=== PATIENT | female | born 1960 | race African-American/Black ===

== ENCOUNTER 2017-01-26 16:52 | Emergency (ER) | payer MEDICARE ==
[2017-01-26] MEDS ORDERED: METHYLPREDNISOLONE INJ 125 MG/2 ML SDV IV ONE (17:08)
[2017-01-26] MEDS ORDERED: DIPHENHYDRAMINE HCL 50 MG/ML VIAL IV ONE (17:08)
[2017-01-26] MEDS ORDERED: FAMOTIDINE INJ/PF 20 MG/2 ML SDV IV ONE (17:08)
[2017-01-26] MEDS ORDERED: NORMAL SALINE 1000 ML 1,000 ML IV PRN (17:08)
--- NOTE | 2017-01-26 17:10 | ER Document Report ---
ED Medical Screen (RME) - General Chief Complaint: Allergic Reaction Stated Complaint: POSSIBLE ALLERGIC REATION Time Seen by Provider: 01/26/17 16:59 Mode of Arrival: Wheelchair Information source: Patient TRAVEL OUTSIDE OF THE [place] IN LAST 30 DAYS: No - HPI Patient complains to provider of: Allergic reaction, facial swelling, rash Notes: 01/26/17 17:09 Patient is a 56-year-old female presenting to the emergency room complaining of allergic reaction with facial swelling and rash, symptoms have been going on for the past few months, intermittently, yesterday she had worsening symptoms and used her EpiPen which seemed to improve her symptoms, however they are worsening again today, she had a recent biopsy of the rash on her hands and follows up with her top steep tender tomorrow, otherwise at home she has been taking 60 mg of prednisone daily up until yesterday, Claritin and hydralazine - Related Data Allergies/Adverse Reactions: topiramate [From Topamax] Allergy (Verified 01/26/17 16:58) Past Medical History - Past Medical History Cardiac Medical History: Reports: Hx Heart Attack, Hx Hypercholesterolemia, Hx Hypertension, Hx Pulmonary Embolism Endocrine Medical History: Reports: Hx Diabetes Mellitus Type 2 - BORDERLINE Renal/ Medical History: Denies: Hx Peritoneal Dialysis GI Medical History: Reports: Hx Irritable Bowel Musculoskeltal Medical History: Reports Hx Arthritis, Reports Hx Fibromyalgia Psychiatric Medical History: Reports: Hx Anxiety, Hx Depression Past Surgical History: Reports: Hx Section, Hx Hysterectomy - Immunizations Hx Diphtheria, Pertussis, Tetanus Vaccination: Yes
[2017-01-26] MEDS ORDERED: KETOROLAC TROMETHAMINE INJ/PF 30 MG/1 ML SDV IV ONE (20:07)
[2017-01-26] MEDS ORDERED: DIAZEPAM INJ 10 MG/2 ML DISP.SYRIN IV ONE (20:07)
--- NOTE | 2017-01-26 20:13 | ER Document Report ---
ED General - General Chief Complaint: Allergic Reaction Stated Complaint: POSSIBLE ALLERGIC REATION Time Seen by Provider: 01/26/17 16:59 Mode of Arrival: Wheelchair Notes: Patient is a 56-year-old female with a past medical history of chronic pain, fibromyalgia, obesity, hypertension, and psoriatic arthritis currently on Humira who presents with concerns of difficulty breathing and a possible acute allergic reaction. Although these are apparently patient's initial concerns, when I begin speaking with patient she is more concerned regarding some skin lesions on her bilateral lower and upper extremities as well as her back and abdomen that has been present for approximately 2-3 weeks. She is currently being followed by dermatology for this concern. She does describe these areas as being severely itchy, burning, and constantly uncomfortable. She has tried steroids and hydroxyzine without any significant improvement of her pain and irritation. Touching the areas worsens her symptoms. She denies any fever or constitutional symptoms. States that it did start after she missed a dose of Humira. States today she began to feel itching all over and felt she was also beginning to have difficulty breathing which is what prompted her come to the emergency department. The symptoms have now mostly resolved after receiving IV Benadryl in triage. She currently denies any difficulty breathing, vomiting, diarrhea, abdominal pain, syncope or lightheadedness. TRAVEL OUTSIDE OF THE [place] IN LAST 30 DAYS: No - Related Data Allergies/Adverse Reactions: topiramate [From Topamax] Allergy (Verified 01/26/17 16:58) Past Medical History - General Information source: Patient - Social History Smoking Status: Never Smoker Frequency of alcohol use: None Drug Abuse: None Lives with: Spouse/Significant other Family History: Reviewed & Not Pertinent, CVA, Hypertension - Past Medical History Cardiac Medical History: Reports: Hx Heart Attack, Hx Hypercholesterolemia, Hx Hypertension, Hx Pulmonary Embolism Endocrine Medical History: Reports: Hx Diabetes Mellitus Type 2 - BORDERLINE Renal/ Medical History: Denies: Hx Peritoneal Dialysis GI Medical History: Reports: Hx Irritable Bowel Musculoskeltal Medical History: Reports Hx Arthritis, Reports Hx Fibromyalgia Psychiatric Medical History: Reports: Hx Anxiety, Hx Depression Past Surgical History: Reports: Hx Section, Hx Hysterectomy - Immunizations Hx Diphtheria, Pertussis, Tetanus Vaccination: Yes Review of Systems - Review of Systems Notes: Constitutional: Negative for fever. HENT: Negative for sore throat. Eyes: Negative for visual changes. Cardiovascular: Negative for chest pain. Respiratory: Negative for shortness of breath. Gastrointestinal: Negative for abdominal pain, vomiting or diarrhea. Genitourinary: Negative for dysuria. Musculoskeletal: Negative for back pain. Skin: Positive for rash. Neurological: Negative for headaches, weakness or numbness. 10 point ROS negative except as marked above and in HPI. Physical Exam - Vital signs Vitals: Resp Pulse Ox 11 L 100 01/26/17 19:39 01/26/17 19:39 Interpretation: Normal Notes: PHYSICAL EXAMINATION: GENERAL: Well-appearing, well-nourished and in no acute distress. HEAD: Atraumatic, normocephalic. EYES: Pupils equal round and reactive to light, extraocular movements intact, sclera anicteric, conjunctiva are normal. ENT: nares patent, oropharynx clear without exudates. Moist mucous membranes. No oral lesions NECK: Normal range of motion, supple without lymphadenopathy LUNGS: Breath sounds clear to auscultation bilaterally and equal. No wheezes rales or rhonchi. HEART: Regular rate and rhythm without murmurs ABDOMEN: Soft, nontender, normoactive bowel sounds. No guarding, no rebound. No masses appreciated. EXTREMITIES: Normal range of motion, no pitting or edema. No cyanosis. NEUROLOGICAL: No focal neurological deficits. Moves all extremities spontaneously and on command. PSYCH: Anxious, tearful SKIN: Warm, Dry, normal turgor, scattered areas of raised plaques over the bilateral hands, feet, back and abdomen Course - Re-evaluation Re-evalutation: 01/26/17 20:08 Patient presents with several weeks of diffuse lesions over her body that appear most consistent with an autoimmune condition. Raised, erythematous plaques over the back, bilateral feet and hands. She has already had a biopsy of these areas done and will be following up with her lacer and tier tomorrow. She does not appear to be having an acute allergic reaction today. No respiratory involvement, vitals within normal limits, no GI system involvement. Cardiovascular system without any evidence of syncope or hypotension. I do not see any indication for administration of epinephrine or repeat dosing of steroids. She has already come off a seven-day course of steroids without any significant improvement of her rash. I suspect the patient will require long- term immunosuppression therapy and do not believe there is anything additional acute that can be offered here in the emergency department and have discussed this at length with the patient. At this time will discharge with return precautions and follow-up recommendations. Verbal discharge instructions given a the bedside and opportunity for questions given. Medication warnings reviewed. Patient is in agreement with this plan and has verbalized understanding of return precautions and the need for primary care follow-up in the next 24-72 hours. - Vital Signs Vital signs: Temp Pulse Resp BP Pulse Ox 16 158/101 H 95 01/26/17 21:01 01/26/17 21:01 01/26/17 21:01 Discharge - Discharge Clinical Impression: Autoimmune dermatitis Condition: Good Disposition: HOME, SELF-CARE Additional Instructions: Please follow-up with your lacer and tier as scheduled. You have been sent home with a small amount of diazepam which you can use for anxiety in the setting of your ongoing medical issues. Return if you develop difficulty breathing, persistent vomiting, pass out, or have any other symptoms that are worrisome to you. Prescriptions: Diazepam [Valium 5 mg Tablet] 5 mg PO DAILY PRN #5 tablet PRN Reason:
[2017-01-26 21:06] VITALS: BP 158/101
== END 2017-01-26 21:22 | disposition home or self-care (01) ==
LOC: ER 16:52
DX: L40.50 Arthropathic psoriasis, unspecified (principal); T39.4X6A Underdosing of antirheumatics, not elsewhere classified, initial encounter; Z91.14 Patient's other noncompliance with medication regimen; I10 Essential (primary) hypertension; R06.00 Dyspnea, unspecified; I25.2 Old myocardial infarction; Z88.6 Allergy status to analgesic agent; Z79.899 Other long term (current) drug therapy
CPT/HCPCS: 99283; 96361; 96374; 96375; J3360; J1200; J2930; J1885; J7030; S0028

== ENCOUNTER 2017-06-27 19:20 | Inpatient (IN) | payer MEDICARE ==
[2017-06-27] MEDS ORDERED: ALBUTEROL SULFATE 0.083% NEB 2.5 MG/3 ML AMPUL NEB ONE ×2 (20:58→23:14)
--- NOTE | 2017-06-27 20:59 | ER Document Report ---
ED Flu Like - General Chief Complaint: Flu Symptoms Stated Complaint: FEVER,COUGH, CONGESTION Time Seen by Provider: 06/27/17 20:18 Notes: Patient is a 57-year-old female who presents emergency department with a chief complaint of nonproductive cough, wheezing, shortness of breath, sinus congestion, headach, fever with a T-max of 101 for the past 3 days. She denies any productive cough, chest pain. She admits to tightness in her chest that is worse with coughing. She admits to sore throat as well. She denies any sick contacts. Past medical history significant for psoriasis on Stelara and methotrexate, previous history of PEs but stopped taking her blood thinners, degenerative disc disease, osteoporosis psoriatic arthritis on chronic pain management with Dr. Pierre. She takes 30 mg oxycodone as well as morphine extended release. History of fibromyalgia. Prediabetic not on any medication, hypertension on amlodipine, high cholesterol Past surgical history significant for 1, previous hysterectomy, coronary cath 1 Social history is a half a pack a day smoker for the past 40 years admits to occasional alcohol. Denies any drug use. TRAVEL OUTSIDE OF THE [place] IN LAST 30 DAYS: No - Related Data Allergies/Adverse Reactions: topiramate [From Topamax] Allergy (Verified 01/26/17 16:58) Past Medical History - Social History Smoking Status: Unknown if Ever Smoked Family History: Reviewed & Not Pertinent, CVA, Hypertension Patient has suicidal ideation: No Patient has homicidal ideation: No - Past Medical History Cardiac Medical History: Reports: Hx Heart Attack, Hx Hypercholesterolemia, Hx Hypertension, Hx Pulmonary Embolism Endocrine Medical History: Reports: Hx Diabetes Mellitus Type 2 - BORDERLINE Renal/ Medical History: Denies: Hx Peritoneal Dialysis GI Medical History: Reports: Hx Irritable Bowel Musculoskeltal Medical History: Reports Hx Arthritis, Reports Hx Fibromyalgia Psychiatric Medical History: Reports: Hx Anxiety, Hx Depression Past Surgical History: Reports: Hx Section, Hx Hysterectomy - Immunizations Hx Diphtheria, Pertussis, Tetanus Vaccination: Yes Physical Exam - Vital signs Vitals: Temp Pulse BP Pulse Ox 99.2 F 114 H 151/94 H 94 06/27/17 19:30 06/27/17 19:30 06/27/17 19:30 06/27/17 19:30 - Notes Notes: PHYSICAL EXAM GENERAL: Alert, interacts well. HEAD: Normocephalic, atraumatic. EYES: Pupils equal, round, and reactive to light. Extraocular movements intact. ENT: Oral mucosa moist, tongue midline. NECK: Full range of motion. Supple. Trachea midline. LUNGS: Diffuse inspiratory respiratory wheezes noted bilaterally without rales, or rhonchi. No respiratory distress Tachypnea on exertion HEART: Regular rate and rhythm. No murmurs, gallops, or rubs. ABDOMEN: Soft, nondistended, nontender. No guarding, rebound, or rigidity.. Bowel sounds present in all 4 quadrants. EXTREMITIES: Moves all 4 extremities spontaneously. No edema, radial and dorsalis pedis pulses 2/4 bilaterally. No cyanosis. NEUROLOGICAL: Alert and oriented x4. Normal speech. PSYCH: Normal affect, normal mood. SKIN: Warm, dry, normal turgor. No rashes or lesions noted. Course - Re-evaluation Re-evalutation: 06/27/17 22:21 Patient is a 57-year-old female who is hemodynamically stable, no acute distress afebrile. Presentation is consistent with viral bronchitis. Chest x- ray without any evidence of vascular congestion, acute infiltrate, enlarged cardiac border. Rapid strep is negative. Patient with minimal improvement after multiple breathing treatments. EKG without any evidence of right heart strain, arrhythmia, ST elevations 06/27/17 23:14 IV access obtained and Solu-Medrol administered labs sent without any evidence of leukocytosis, anemia. Chemistry panel stable without any evidence of electrolyte abnormalities, elevated troponin. 06/28/17 00:40 Patient ambulated after last breathing treatment and desats down to 88-90% with tachypnea and tachycardia into the 130s. She resolves to approximately 94% on room air with rest with a heart rate of 115. Case discussed with the admitting hospitalist Dr. Slater who agrees for telemetry observation for viral bronchitis with associated hypoxia. Patient and family are agreeable with plan - Vital Signs Vital signs: Temp Pulse Resp BP Pulse Ox 100.8 F H 109 H 18 116/63 94 06/28/17 00:17 06/27/17 22:31 06/27/17 22:31 06/27/17 22:31 06/27/17 22:31 - Laboratory Result Diagrams: 06/27/17 23:35 06/27/17 23:35 Laboratory results interpreted by me: 06/27/17 06/27/17 23:35 23:35 RDW 14.5 H Seg Neutrophils % 29.6 L Lymphocytes % 55.7 H Absolute Neutrophils 1.4 L Sodium 136.1 L Chloride 97 L Glucose 252 H Total Bilirubin < 0.1 L - Diagnostic Test Radiology reviewed: Image reviewed, Reports reviewed - EKG Interpretation by Me EKG shows normal: Sinus rhythm Rate: Tachycardia Rhythm: NSR When compared to previous EKG there are: No significant change Discharge - Discharge Clinical Impression: Bronchitis, Hypoxia Condition: Stable Disposition: ADMITTED OBSERVATION Admitting Provider: Hospitalist Unit Admitted: Telemetry
--- NOTE | 2017-06-27 21:25 | RADIOLOGY REPORT (SQ) ---
EXAM DESCRIPTION: CHEST PA/LAT COMPLETED DATE/TIME: 06/27/2017 9:16 pm REASON FOR STUDY: cough COMPARISON: 01/15/2016 EXAM PARAMETERS: NUMBER OF VIEWS: two views TECHNIQUE: Digital Frontal and Lateral radiographic views of the chest acquired. RADIATION DOSE: NA LIMITATIONS: none FINDINGS: LUNGS AND PLEURA: No opacities, masses or pneumothorax. No pleural effusion. MEDIASTINUM AND HILAR STRUCTURES: No masses or contour abnormalities. HEART AND VASCULAR STRUCTURES: Heart normal size. No evidence for failure. BONES: No acute findings. HARDWARE: None in the chest. OTHER: No other significant finding. IMPRESSION: NO SIGNIFICANT RADIOGRAPHIC FINDING IN THE CHEST. TECHNICAL DOCUMENTATION: JOB ID: [id number] [employer]- All Rights Reserved Reading location - IP/workstation name: [email or web address]
--- NOTE | 2017-06-27 21:49 | EKG REPORT ---
SEVERITY:- BORDERLINE ECG - SINUS TACHYCARDIA PROBABLE LEFT ATRIAL ABNORMALITY MINIMAL ST DEPRESSION, INFERIOR LEADS : Confirmed by: Mehran Douglas 27-Jun-2017 21:48:37
[2017-06-27] MEDS ORDERED: GUAIFENESIN 600 MG TABLET.SA PO ONE (22:21)
[2017-06-27] MEDS ORDERED: IPRATROPIUM/ALBUTEROL 0.5-2.5 MG/3 ML AMPUL NEB ONE (22:21)
[2017-06-27] MEDS ORDERED: METHYLPREDNISOLONE INJ 125 MG/2 ML SDV IV ONE (23:15)
[2017-06-27 23:45] LABS: ABSOLUTE EOSINOPHILS # (AUTO) 0.1 10^3/uL (0.0-0.6); ABSOLUTE LYMPHOCYTES (AUTO) 2.7 10^3/uL (0.5-4.7); ABSOLUTE MONOCYTES (AUTO) 0.6 10^3/uL (0.1-1.4); ABSOLUTE NEUT (AUTO) 1.4 10^3/uL (1.7-8.2); BASOPHILS % (AUTO) 0.7 % (0-2); EOSINOPHILS % (AUTO) 1.6 % (0-6); HEMATOCRIT 41.8 % (36.0-47.0); HEMOGLOBIN 13.9 g/dL (12.0-15.5); LYMPHOCYTES % (AUTO) 55.7 % (13-45); MEAN CORPUSCULAR HEMOGLOBIN 31.3 pg (27.0-33.4); MEAN CORPUSCULAR HGB CONC 33.2 g/dL (32.0-36.0); MEAN CORPUSCULAR VOLUME 94 fl (80-97); MONOCYTES % (AUTO) 12.4 % (3-13); PLATELET COUNT 261 10^3/uL (150-450); RED BLOOD COUNT 4.44 10^6/uL (3.72-5.28); RED CELL DISTRIBUTION WIDTH 14.5 % (11.5-14.0); SEGMENTED NEUTROPHILS % (AUTO) 29.6 % (42-78); TOTAL CELLS COUNTED % (AUTO) 100 %; WHITE BLOOD COUNT 4.8 10^3/uL (4.0-10.5)
[2017-06-28 00:01] LABS: ALANINE AMINOTRANSFERASE 33 U/L (9-52); ALBUMIN 4.1 g/dL (3.5-5.0); ALKALINE PHOSPHATASE 79 U/L (38-126); ANION GAP 12 (5-19); ASPARTATE AMINO TRANSFERASE 24 U/L (14-36); BLOOD UREA NITROGEN 11 mg/dL (7-20); CALCIUM 9.4 mg/dL (8.4-10.2); CARBON DIOXIDE 27 mmol/L (22-30); CHLORIDE 97 mmol/L (98-107); GLUCOSE 252 mg/dL (75-110); POTASSIUM 4.2 mmol/L (3.6-5.0); SODIUM 136.1 mmol/L (137-145)
[2017-06-28 00:03] LABS: BILIRUBIN,TOTAL < 0.1 mg/dL (0.2-1.3)
[2017-06-28] MEDS ORDERED: ACETAMINOPHEN 325 MG TABLET PO ONE (00:16)
[2017-06-28] MEDS ORDERED: LACTULOSE SYRUP 20 GM/30 ML UDCUP PO ONE (00:33)
[2017-06-28] MEDS ORDERED: HYDRALAZINE HCL INJ/PF 20 MG/1 ML SDV IV PRN (00:33)
[2017-06-28] MEDS ORDERED: CHLORPHENIRAMINE MALEATE 4 MG TABLET PO ONE (00:33)
[2017-06-28] MEDS ORDERED: DEXTROSE 40% GEL 15 GM TUBE PO PRN ×2 (00:34)
[2017-06-28] MEDS ORDERED: IPRATROPIUM/ALBUTEROL 0.5-2.5 MG/3 ML AMPUL NEB PRN (00:34)
[2017-06-28] MEDS ORDERED: GUAIFENESIN SYRP 200 MG/10 ML UDC PO PRN (00:34)
[2017-06-28] MEDS ORDERED: DEXTROSE 50%-WATER 25 GM/50 ML DISP.SYRIN IV PRN ×2 (00:34)
[2017-06-28] MEDS ORDERED: GLUCAGON,HUMAN RECOMB 1 MG INJ IM PRN (00:34)
[2017-06-28] MEDS ORDERED: LEVOFLOXACIN 750 MG/D5W RTU 750 MG/150 ML RTUPB IV ONE ×2 (01:00→05:00)
[2017-06-28] MEDS ORDERED: FLUTICASONE NASAL SPRAY 50 MCG/SPRY 120 SPRAY/16 GM NASL ONE (01:00)
[2017-06-28] MEDS: IPRATROPIUM/ALBUTEROL 0.5-2.5 MG/3 ML AMPUL NEB SCH ×3 (02:36→14:40)
[2017-06-28] MEDS ORDERED: (PENDING PHARMACY ID) (Oxycodone Hcl [Oxycodone Hcl] 5 MG) PO PRN (03:54)
[2017-06-28 04:11] LABS: ABSOLUTE LYMPHOCYTES (AUTO) 0.3 10^3/uL (0.5-4.7); ABSOLUTE MONOCYTES (AUTO) 0.1 10^3/uL (0.1-1.4); ABSOLUTE NEUT (AUTO) 3.9 10^3/uL (1.7-8.2); EOSINOPHILS % (AUTO) 0.4 % (0-6); HEMATOCRIT 42.7 % (36.0-47.0); HEMOGLOBIN 14.3 g/dL (12.0-15.5); LYMPHOCYTES % (AUTO) 7.3 % (13-45); MEAN CORPUSCULAR HEMOGLOBIN 31.5 pg (27.0-33.4); MEAN CORPUSCULAR HGB CONC 33.4 g/dL (32.0-36.0); MEAN CORPUSCULAR VOLUME 94 fl (80-97); MONOCYTES % (AUTO) 1.8 % (3-13); PLATELET COUNT 274 10^3/uL (150-450); RED BLOOD COUNT 4.54 10^6/uL (3.72-5.28); RED CELL DISTRIBUTION WIDTH 14.6 % (11.5-14.0); SEGMENTED NEUTROPHILS % (AUTO) 89.5 % (42-78); TOTAL CELLS COUNTED % (AUTO) 100 %; WHITE BLOOD COUNT 4.4 10^3/uL (4.0-10.5)
[2017-06-28 04:25] LABS: ANION GAP 13 (5-19); BLOOD UREA NITROGEN 11 mg/dL (7-20); CALCIUM 9.2 mg/dL (8.4-10.2); CARBON DIOXIDE 24 mmol/L (22-30); CHLORIDE 102 mmol/L (98-107); GLUCOSE 260 mg/dL (75-110); POTASSIUM 4.4 mmol/L (3.6-5.0); SODIUM 138.8 mmol/L (137-145)
--- NOTE | 2017-06-28 04:30 | PDOC H&P ---
History of Present Illness Admission Date/PCP: 06/28/17 00:46 Patient complains of: Shortness of breath nonproductive cough History of Present Illness: LADONNA ARRIETA is a 57 year old female with a past medical history of opiate dependent chronic pain, fibromyalgia, Morbid obesity, tobacco dependence and psoriasis on methotrexate and Stelara (last dose 1 month ago). Patient presents with 3 days ago of nonproductive cough, headache, shortness of breath with wheeze, sinus congestion and subjective fever. In the emergency room she is found to have an unremarkable workup with exception to wheeze. She started on albuterol and Atrovent and referred to the hospitalist for admission. She denies recent antibiotic use. Past Medical History Cardiac Medical History: Reports: Myocardial Infarction, Hyperlipidema, Hypertension, Pulmonary Embolism Endocrine Medical History: Reports: Diabetes Mellitus Type 2 - BORDERLINE Musculoskeltal Medical History: Reports: Arthritis, Fibromyalgia Psychiatric Medical History: Reports: Depression Past Surgical History Past Surgical History: Reports: Section, Hysterectomy Social History Information Source: Patient Smoking Status: Current Every Day Smoker Frequency of Alcohol Use: Social Hx Recreational Drug Use: No Drugs: None - Advance Directive Resuscitation Status: Full Code Family History Family History: CVA, Hypertension Parental Family History Reviewed: Yes Children Family History Reviewed: Yes Sibling(s) Family History Reviewed.: Yes Medication/Allergy Home Medications: Buspirone HCl [Buspar 15 mg Tablet] 15 mg PO TID 05/01/12 Cyclobenzaprine HCl [Flexeril 10 Mg Tablet] 10 mg PO TID 05/01/12 Diazepam [Valium] 10 mg PO BID 05/01/12 Diclofenac Sodium [Voltaren] 75 mg PO BID 05/01/12 Fenofibric Acid (Choline) [Trilipix] 135 mg PO DAILY 05/01/12 Gabapentin [Neurontin 400 Mg Capsule] 400 mg PO TID 05/01/12 Hydroxyzine Pamoate [Vistaril 50 Mg Capsule] 50 mg PO Q6 05/01/12 Lisinopril/Hydrochlorothiazide [Zestoretic 10-12.5 mg Tablet] BID 05/01/12 Omeprazole [Prilosec 20 mg Capsule] 20 mg PO DAILY 05/01/12 Oxycodone HCl 15 mg PO Q6 PRN 05/01/12 Rosuvastatin Calcium [Crestor 40 mg Tablet] 40 mg PO DAILY 05/01/12 Sertraline HCl [Zoloft] 150 mg PO DAILY 05/01/12 Trazodone HCl [Desyrel] 200 mg PO DAILY 05/01/12 Warfarin Sodium [Coumadin 5 Mg Tablet] 5 mg PO DAILY 05/01/12 Docusate Sodium [Colace 100 mg Capsule] 100 mg PO DAILY #30 capsule 08/16/15 Magnesium Citrate [Citrate of Magnesia 296 ml Bottle] 296 ml PO ONCE PRN #1 bottle 08/16/15 Nystatin/Dexameth/Diphen [Magic Mouthwash (Omh Formula) Susp] 5 ml PO QID #120 ml 08/16/15 Diazepam [Valium 5 mg Tablet] 5 mg PO DAILY PRN #5 tablet 01/26/17 Allergies/Adverse Reactions: topiramate [From Topamax] Allergy (Verified 01/26/17 16:58) Review of Systems ROS unobtainable: Other - Review of systems is felt unreliable as patient answers affirmatively all questions. Constitutional: ABSENT: chills, fever(s), headache(s), weight gain, weight loss Eyes: ABSENT: visual disturbances Ears: ABSENT: hearing changes Cardiovascular: ABSENT: chest pain, dyspnea on exertion, edema, orthropnea, palpitations Respiratory: ABSENT: cough, hemoptysis Gastrointestinal: ABSENT: abdominal pain, constipation, diarrhea, hematemesis, hematochezia, nausea, vomiting Genitourinary: ABSENT: dysuria, hematuria Musculoskeletal: ABSENT: joint swelling Integumentary: ABSENT: rash, wounds Neurological: ABSENT: abnormal gait, abnormal speech, confusion, dizziness, focal weakness, syncope Psychiatric: ABSENT: anxiety, depression, homidical ideation, suicidal ideation Endocrine: ABSENT: cold intolerance, heat intolerance, polydipsia, polyuria Hematologic/Lymphatic: ABSENT: easy bleeding, easy bruising Physical Exam Vital Signs: Temp Pulse Resp BP Pulse Ox 97.8 F 111 H 18 137/118 H 94 06/28/17 03:50 06/28/17 02:33 06/28/17 04:01 06/28/17 04:01 06/28/17 04:01 General appearance: PRESENT: no acute distress, cooperative, morbidly obese Head exam: PRESENT: atraumatic, normocephalic Eye exam: PRESENT: conjunctiva pink, EOMI, PERRLA. ABSENT: scleral icterus Ear exam: PRESENT: normal external ear exam Mouth exam: PRESENT: moist, tongue midline Neck exam: ABSENT: carotid bruit, JVD, lymphadenopathy, thyromegaly Respiratory exam: PRESENT: clear to auscultation shashank, prolonged expiratory phas , rhonchi - Upper airway rhonchi, other - Poor effort. ABSENT: rales, wheezes Cardiovascular exam: PRESENT: RRR. ABSENT: diastolic murmur, rubs, systolic murmur Pulses: PRESENT: normal dorsalis pedis pul Vascular exam: PRESENT: normal capillary refill GI/Abdominal exam: PRESENT: normal bowel sounds, soft. ABSENT: distended, guarding, mass, organolmegaly, rebound, tenderness Rectal exam: PRESENT: deferred Extremities exam: PRESENT: full ROM. ABSENT: calf tenderness, clubbing, pedal edema Neurological exam: PRESENT: alert, awake, oriented to person, oriented to place , oriented to time, oriented to situation, CN II-XII grossly intact. ABSENT: motor sensory deficit Psychiatric exam: PRESENT: flat affect, normal mood. ABSENT: homicidal ideation , suicidal ideation Skin exam: PRESENT: dry, intact, warm. ABSENT: cyanosis, rash Results Laboratory Results: 06/28/17 04:00 06/28/17 04:00 WBC 4.4 RBC 4.54 Hgb 14.3 Hct 42.7 MCV 94 MCH 31.5 MCHC 33.4 RDW 14.6 H Plt Count 274 Seg Neutrophils % 89.5 H Lymphocytes % 7.3 L Monocytes % 1.8 L Eosinophils % 0.4 Basophils % 1.0 Absolute Neutrophils 3.9 Absolute Lymphocytes 0.3 L Absolute Monocytes 0.1 Absolute Eosinophils 0.0 Absolute Basophils 0.0 Impressions: Chest X-Ray 06/27/17 20:58 IMPRESSION: NO SIGNIFICANT RADIOGRAPHIC FINDING IN THE CHEST. Assessment & Plan - Diagnosis (1) Diabetes Is this a current diagnosis for this admission?: Yes Plan: Home regiment with sliding scale coverage (2) Chronic pain Is this a current diagnosis for this admission?: Yes Plan: Home regiment held for excessive sedation (3) Bronchitis Is this a current diagnosis for this admission?: Yes Plan: Albuterol and Atrovent, Flonase, chlorpheniramine consider empiric antibiotics (4) Hypoxia Is this a current diagnosis for this admission?: Yes Plan: Supplemental oxygen, suspect undiagnosed obstructive sleep apnea, consider outpatient sleep study - Time Time Spent: 50 to 70 Minutes
[2017-06-28] MEDS ORDERED: NICOTINE 14 MG/24 HR PATCH.TD24 TD ONE (06:36)
[2017-06-28] MEDS ORDERED: NALOXONE HCL INJ/PF 0.4 MG/1 ML SDV IV PRN (08:55)
[2017-06-28] MEDS ORDERED: LEVALBUTEROL HCL NEB 0.63 MG/3 ML AMPUL NEB PRN ×2 (09:01→16:24)
[2017-06-28] MEDS: ALPRAZOLAM 0.5 MG TABLET PO PRN ×2 (09:27→19:58)
[2017-06-28] MEDS ORDERED: FENTANYL CITRATE INJ/PF 100 MCG/2 ML AMPUL IV ONE ×2 (09:45→19:00)
[2017-06-28] MEDS ORDERED: FLUTICASONE NASAL SPRAY 50 MCG/SPRY 120 SPRAY/16 GM NASL SCH (10:00)
[2017-06-28] MEDS ORDERED: (PENDING PHARMACY ID) (Diazepam [Valium] 5 MG) PO SCH (10:00)
[2017-06-28] MEDS ORDERED: (PENDING PHARMACY ID) (Trazodone Hcl [Desyrel] 200 MG) PO SCH (10:00)
[2017-06-28] MEDS ORDERED: ROSUVASTATIN CALCIUM 40 MG PO SCH (10:00)
[2017-06-28] MEDS: INSULIN LISPRO 100 UNIT/ML 3 ML VIAL SUBCUT PRN ×4 (10:59→21:48)
[2017-06-28] MEDS: DOCUSATE SODIUM 100 MG CAPSULE PO SCH (11:05)
[2017-06-28] MEDS ORDERED: MORPHINE SULFATE SR 30 MG TABLET PO ONE (12:00)
[2017-06-28] MEDS ORDERED: GABAPENTIN 400 MG CAPSULE PO SCH (14:00)
[2017-06-28] MEDS ORDERED: CYCLOBENZAPRINE HCL 10 MG TABLET PO SCH (14:00)
[2017-06-28] MEDS ORDERED: MUPIROCIN 2% OINTMENT 22 GM TOP PRN (16:30)
[2017-06-28] MEDS ORDERED: ALBUTEROL SULFATE HFA (90 MCG/PUFF) 8 GM MDI (1 MDI/ER DISP) IH PRN (16:30)
[2017-06-28] MEDS ORDERED: ALBUTEROL SULFATE HFA (90 MCG/PUFF) 200 PUFF/8.5 GM MDI IH PRN (16:56)
[2017-06-28] MEDS: HEPARIN SOD (PORCINE) 5,000 UNIT/ML 1 ML SYRINGE SUBCUT SCH ×2 (17:22→21:48)
[2017-06-28] MEDS ORDERED: FOLIC ACID 1 MG TABLET PO ONE (17:30)
[2017-06-28] MEDS ORDERED: LORATADINE 10 MG TABLET PO ONE (17:30)
[2017-06-28] MEDS: LIDOCAINE 5% OINTMENT 35.44 GM TOP SCH (18:37)
[2017-06-28] MEDS: CLOBETASOL PROPIONATE 0.05% OINTMENT 15 GM TOP SCH (18:37)
[2017-06-28] MEDS ORDERED: NICOTINE 21 MG/24 HR PATCH.TD24 TD ONE (21:00)
[2017-06-28] MEDS: OXYCODONE HCL IR 5 MG TABLET PO PRN (21:48)
[2017-06-28] MEDS: MORPHINE SULFATE SR 30 MG TABLET PO SCH (21:48)
[2017-06-28] MEDS: GABAPENTIN 300 MG CAPSULE PO SCH (21:48)
[2017-06-29] MEDS ORDERED: LORATADINE 10 MG TABLET PO ONE (00:30)
[2017-06-29] MEDS: GABAPENTIN 300 MG CAPSULE PO SCH (06:06)
[2017-06-29] MEDS: HEPARIN SOD (PORCINE) 5,000 UNIT/ML 1 ML SYRINGE SUBCUT SCH (06:08)
[2017-06-29] MEDS: OXYCODONE HCL IR 5 MG TABLET PO PRN (06:29)
[2017-06-29] MEDS: ALPRAZOLAM 0.5 MG TABLET PO PRN (06:29)
[2017-06-29 07:12] LABS: ABSOLUTE BASOPHILS # (AUTO) 0.1 10^3/uL (0.0-0.2); ABSOLUTE LYMPHOCYTES (AUTO) 2.3 10^3/uL (0.5-4.7); ABSOLUTE MONOCYTES (AUTO) 0.5 10^3/uL (0.1-1.4); ABSOLUTE NEUT (AUTO) 2.3 10^3/uL (1.7-8.2); BASOPHILS % (AUTO) 1.1 % (0-2); EOSINOPHILS % (AUTO) 0.1 % (0-6); HEMATOCRIT 40.9 % (36.0-47.0); HEMOGLOBIN 13.7 g/dL (12.0-15.5); LYMPHOCYTES % (AUTO) 44.4 % (13-45); MEAN CORPUSCULAR HEMOGLOBIN 31.5 pg (27.0-33.4); MEAN CORPUSCULAR HGB CONC 33.4 g/dL (32.0-36.0); MEAN CORPUSCULAR VOLUME 94 fl (80-97); PLATELET COUNT 270 10^3/uL (150-450); RED BLOOD COUNT 4.34 10^6/uL (3.72-5.28); RED CELL DISTRIBUTION WIDTH 14.5 % (11.5-14.0); SEGMENTED NEUTROPHILS % (AUTO) 44.4 % (42-78); TOTAL CELLS COUNTED % (AUTO) 100 %; WHITE BLOOD COUNT 5.3 10^3/uL (4.0-10.5)
[2017-06-29 07:36] LABS: ANION GAP 10 (5-19); BLOOD UREA NITROGEN 13 mg/dL (7-20); CALCIUM 9.2 mg/dL (8.4-10.2); CARBON DIOXIDE 24 mmol/L (22-30); CHLORIDE 106 mmol/L (98-107); GLUCOSE 158 mg/dL (75-110); POTASSIUM 4.3 mmol/L (3.6-5.0); SODIUM 139.7 mmol/L (137-145)
[2017-06-29] MEDS ORDERED: LEVOFLOXACIN 750 MG/D5W RTU 750 MG/150 ML RTUPB IV SCH (08:00)
[2017-06-29] MEDS: LIDOCAINE 5% OINTMENT 35.44 GM TOP SCH (09:12)
[2017-06-29] MEDS: MORPHINE SULFATE SR 30 MG TABLET PO SCH (09:12)
[2017-06-29] MEDS: DOCUSATE SODIUM 100 MG CAPSULE PO SCH (09:12)
[2017-06-29] MEDS: CLOBETASOL PROPIONATE 0.05% OINTMENT 15 GM TOP SCH (09:12)
[2017-06-29 09:41] VITALS: BP 130/83
[2017-06-29] MEDS ORDERED: FOLIC ACID 1 MG TABLET PO SCH (10:00)
[2017-06-29] MEDS ORDERED: LEVOFLOXACIN 750 MG TABLET PO SCH (10:00)
[2017-06-29] MEDS ORDERED: LORATADINE 10 MG TABLET PO SCH ×2 (10:00→22:00)
[2017-06-29] MEDS ORDERED: AMLODIPINE BESYLATE 5 MG TABLET PO SCH (10:00)
[2017-06-29] MEDS ORDERED: DULOXETINE HCL 30 MG CAPSULE.DR PO SCH (10:00)
[2017-07-01] MEDS ORDERED: METHOTREXATE SODIUM 2.5 MG TABLET PO SCH (10:00)
== END 2017-06-29 10:33 | disposition home or self-care (01) | DRG 202 ==
LOC: ER 19:20 → OBSVTOIN 06-28 00:46 → EH 06-28 00:46 → 5 06-28 14:28
PROVIDERS: ADMIT Internal Medicine; ATTEND Internal Medicine
PROC: 5A09357 Assistance with Respiratory Ventilation, Less than 24 Consecutive Hours, Continuous Positive Airway Pressure (ICD-10-PCS; principal; 2017-06-28)
PROC: 3E0F73Z Introduction of Anti-inflammatory into Respiratory Tract, Via Natural or Artificial Opening (ICD-10-PCS; 2017-06-28)
DX: J20.8 Acute bronchitis due to other specified organisms (principal); Z68.43 Body mass index [BMI] 50.0-59.9, adult; F11.20 Opioid dependence, uncomplicated; E11.9 Type 2 diabetes mellitus without complications; E66.01 Morbid (severe) obesity due to excess calories; G47.33 Obstructive sleep apnea (adult) (pediatric); M79.7 Fibromyalgia; F17.210 Nicotine dependence, cigarettes, uncomplicated; L40.9 Psoriasis, unspecified; E78.00 Pure hypercholesterolemia, unspecified; I10 Essential (primary) hypertension; M19.90 Unspecified osteoarthritis, unspecified site; F32.9 Major depressive disorder, single episode, unspecified; M81.0 Age-related osteoporosis without current pathological fracture; R09.02 Hypoxemia; L40.50 Arthropathic psoriasis, unspecified; I25.10 Atherosclerotic heart disease of native coronary artery without angina pectoris; K58.9 Irritable bowel syndrome, unspecified; F41.9 Anxiety disorder, unspecified; I25.2 Old myocardial infarction; Z86.711 Personal history of pulmonary embolism; Z90.710 Acquired absence of both cervix and uterus; Z79.899 Other long term (current) drug therapy; Z79.01 Long term (current) use of anticoagulants; Z88.6 Allergy status to analgesic agent; Z82.3 Family history of stroke; Z82.49 Family history of ischemic heart disease and other diseases of the circulatory system
CPT/HCPCS: 36415; 71046; 80048; 80053; 82962; 83036; 83735; 84484; 85025; 87070; 87880; 93005; 93010; 94640; 94667; 94762; 94799; 96374; 99285; J1644; J1815; J1956; J2930; J3010; J3490; J7620